=== PATIENT | female | born 1940 | race Caucasian/White ===

== ENCOUNTER 2024-12-15 21:26 | Inpatient (IN) | payer OTHER, SELFPAY ==
[2024-12-15 16:21] VITALS: BP 163/83
[2024-12-15 17:01] LABS: % Basophils 1.1 % (0-2); % Immature Granulocytes 0.3 % (0-0.5); % Lymphocytes 22.2 % (20.5-51.1); % Monocytes 10.3 % (1.7-9.3); % Neutrophils 63.1 % (42.2-75.2); Absolute Basophils 0.1 10^3/uL (0-0.2); Absolute Eosinophils 0.3 10^3/uL (0-0.7); Absolute Monocytes 0.9 10^3/uL (0.1-0.6); Absolute Neutrophils 5.6 10^3/uL (1.4-6.5); Hematocrit 40.1 % (37.0-47.0); Hemoglobin 13.4 g/dL (12.0-16.0); Mean Corp Hgb Conc. 33.4 g/dL (33.0-37.0); Mean Corpuscular Hgb 30.9 pg (27.0-31.0); Mean Corpuscular Volume 92.4 fL (81.0-99.0); Mean Platelet Volume 10.5 fL (7.4-10.4); Nucleated Red Blood Cells % 0 %; Platelet Count 382 10^3/uL (130-400); Red Blood Cell Count 4.34 10^6/uL (4.20-5.40); Red Cell Dist. Width 12.2 % (11.5-14.5); White Blood Cell Count 8.9 10^3/uL (4.8-10.8)
[2024-12-15 17:38] VITALS: BMI 29.2
[2024-12-15 17:40] VITALS: BP 153/72
[2024-12-15] MEDS: TESSALON PERLES 200 MG PO (18:02)
--- NOTE | 2024-12-15 18:03 | ED.GENMED ---
History of Present Illness
General
Chief Complaint: Cold/Flu/URI Symptoms
Source: patient
Exam Limitations: none
Time Seen by Provider: 12/15/24 17:12
Nursing documentation reviewed up to this point in time: agreed with
History of Present Illness
History of Present Illness:
84-year-old female history of PE x 2 both times provoked been off Eliquis for about a year presents with cough shortness of breath dyspnea on exertion somewhat similar to her prior PE no fever or chills described as a dry cough and tickle in her
throat, no nausea or vomiting, no hemoptysis,
Past History
Past History
ED Past Medical History: HTN, Hypothyroidism and Other (PE x 2 after orthopedic injuries)
ED Past Surgical History: Orthopedic
Social History
Tobacco: Non-smoker
Alcohol: None
Drug: None
Personal:
Living: with family
Employment: Retired
Review of Systems
Review of Systems
All Other Systems: Not applicable
Constitutional: Denies fever or fatigue
Respiratory: Reports cough and trouble breathing
Cardiac: Denies chest pain
Endocrine: Reports no symptoms
Hematologic/Lymphatic: Reports no symptoms
Psychiatric: Reports no symptoms
Phy Exam
Physical Exam
Physical Exam:
Physical Exam
General: no apparent distress, not acutely ill
Neck: No jaundice
Heart: s1/s2 regular rate and rhythm, no murmur. equal radial pulses.
Lungs: Crackles bilaterally
Abdomen: not tender
Neuro: alert and oriented. no focal neurological deficits
Skin: no rash
Psychiatric: well kept. interactive and cooperative
Extremities: no edema. no calf tenderness.
Course
Orders/Labs/Results
Orders:
Orders
12/15/24 16:26
Electrocardiogram (*1) Urgent
Reason for Study: Shortness of Breath
CT Chest PE Study Urgent
Comment: hx of PE/DVT
Reason For Exam: shortness of breath, chest tightness, fatigue
12/15/24 16:27
EKG- Treatment ONCE
12/15/24 16:38
Complete Blood Count/With Diff Urgent
12/15/24 17:41
Benzonatate [Tessalon Perles] 200 mg PO NOW STA
12/15/24 17:43
Add On- LAB Urgent
Tests Added?: pBNP
12/15/24 17:52
COVID-19 Antigen Urgent
Source: Nasal Swab
Comprehensive Metabolic Panel Urgent
NT-proBNP Urgent
Comment: ADDON
Troponin I Urgent
Influenza A+B Rapid Molecular Urgent
KEVIN Source: Nasal Swab
Specimen Description:
12/15/24 19:58
PTT Urgent
Comment: Obtain baseline before beginning heparin infusion if not already collected
Heparin 6,400 units IV NOW STA
Pharmacy Request to Place See Dose Instructions PO NOW STA
Discontinue all Active Warfarin orders?: Yes
Nursing to Place Non Medication Order As Directed
Physician Order: PTT 6 hours after initial start of Heparin infusion
12/15/24 20:00
Heparin 34593 Units/250 ml 25,000 units in 250 ml IV PER PROTOCOL
Weight to be used for heparin protocol in kilograms (kg):: 79.5
Protocol:: DVT/PE
PTT Goal Range to be used:: PTT 73 to 111 seconds
Order type:: Initial
INITIAL Infusion Dose (UNITS/KG/hr) & then follow protocol:: 18 units/kg/hr
Infusion Dose in UNITS/hr & then follow protocol (UNITS/hr):: 1,400
INFUSION RATE in mL/hr & then follow protocol (mL/hr):: 14
For DVT/PE algorithm, re-bolus for low PTT?: Yes
PTT less than or equal to 64 seconds:: Re-bolus 80 units/kg (max 10,000units). Increase by 300 units/hr
(+ 3mL/hr)
PTT 64.1 to 72.9 seconds:: Re-bolus 40 units/kg (max 5,000 units). Increase by 200 units/hr
(+ 2mL/hr)
PTT 73 to 111 seconds:: Target Range. No change in rate.
PTT 111.1 to 130.9 seconds:: Decrease rate by 200 units/hr (- 2 mL/hr)
PTT 131 to 199.9 seconds:: HOLD for 1 hr. Then decrease by 200 units/hr (- 2mL/hr)
PTT greater than or equal to 200 seconds:: HOLD for 2 hrs & Notify Provider. Then decrease by 300 units/hr
(- 3mL/hr)
Lab follow-up:: Each change, PTT q6h until 2 consecutive are therapeutic. Then
PTT daily.
Pharmacy Request to Place See Dose Instructions IV DIRECTED
Abnormal Lab Results
12/15/24 12/15/24
16:38 17:52
MPV 10.5 H fL
(7.4-10.4)
Absolute Monos (auto) 0.9 H 10^3/uL
(0.1-0.6)
Monocytes % 10.3 H %
(1.7-9.3)
Potassium 5.3 H mmol/L
(3.5-5.1)
BUN 21 H mg/dl
(7-17)
Glucose 111 H mg/dl
(70-99)
12/15/24 16:38
12/15/24 17:52
Vital Signs
Initial and Last Documented VS:
Initial Vital Signs
Pulse Resp BP Pulse Ox
83 18 163/83 96
12/15/24 16:21 12/15/24 16:21 12/15/24 16:21 12/15/24 16:21
Last Documented Vital Signs
Temp Pulse Resp BP Pulse Ox
98.3 F 61 20 153/72 95
12/15/24 17:39 12/15/24 18:30 12/15/24 18:30 12/15/24 17:40 12/15/24 18:30
MDM/Problems Addressed
Differential Diagnosis Includes:
Heart failure pneumonia bronchitis URI PE
MDM/Problems Addressed:
Shortness of breath cough dyspnea on exertion
*Radiology
Radiology exam reviewed: radiology read reviewed
*Pulse Oximetry
Patient hypoxic: no
*EKG
Interpreted by ED Provider?: Yes
Interpretation: abnormal
Comparison EKG: no comparison EKG present
Heart Rate: 78
Rate: normal
Rhythm: sinus
Ischemia: non-specific ST changes
*Police Aide Interpretation
Rate: normal
Interpretation: normal
Heart Rate: 78
Rhythm: sinus
*Critical Care Note
Total Time (30-74mins, 75-104mins- exclusive of procedures): 31
Data Reviewed
Review of Other/Old Records Reveals: Labs and Progress Notes
Source: patient
Prescriptions/Medications Considered But Not Given:
tpa
Update Note
Update Note:
Update viral swabs negative labs unremarkable troponin proBNP noted CT completed results are pending
ED Attending Note
-
Portions of this chart may have been created with voice recognition software.� Occasional wrong word or��sound alike� substitutions may have occurred due to the inherent limitations of voice recognition software.
Discharge Plan
Departure
Patient Disposition: Admit
Date of Disposition: 12/15/24
Time of Disposition: 19:33
Admit to: Telemetry
Presentation/result/management discussed w/ accepting MD/DO: Hospitalist
Patient with high blood pressure during this ER visit?: No
Condition: Fair
Discharge Problem:
Pulmonary emboli
Instructions: Acute Bronchitis, Adult (DC), Viral Upper Respiratory Infection, Adult (DC), Chest Pain DCA Follow Up
Prescriptions:
New
benzonatate 200 mg capsule
200 mg PO TID PRN (Reason: Cough) Qty: 30 0RF
albuterol sulfate 90 mcg/actuation HFA aerosol inhaler
1 inh inhalation Q4H PRN (Reason: shortness of breath or wheezing) Qty: 8.5 1RF
No Action
cephalexin 500 MG capsule
500 mg PO BID Qty: 14 0RF
Referrals:
Dean Mejia MD [Active] - Next open appointment
Activity Restrictions/Additional Instructions:
Follow-up with your family doctor, return to the ER for worsening symptoms or any other concerns
Interventions
Interventions:
*Risk Screen - Suicide Last Done: 12/15/24 16:21
*General Assessment Last Done: 12/15/24 17:43
*Neglect/Abuse Screening Last Done: 12/15/24 17:43
ED- Fall Risk Assessment Last Done: 12/15/24 17:43
*ED COVID-19 Vaccine History Last Done: 12/15/24 17:43
ED- Pulmonary Assessment Last Done: 12/15/24 17:43
Discharge Date and Time
Print Language: BRITISH
[2024-12-15 18:21] LABS: ALT (SGPT) 31 U/L (0-35); AST (SGOT) 31 U/L (14-36); Albumin 4.1 g/dl (3.5-5.0); Alkaline Phosphatase 102 U/L (38-126); Blood Urea Nitrogen 21 mg/dl (7-17); Calcium 9.6 mg/dl (8.4-10.2); Carbon Dioxide 26 mmol/L (22-30); Chloride 106 mmol/L (98-107); Estimated Creatinine Clearance 50 ml/min; Glucose 111 mg/dl (70-99); Potassium 5.3 mmol/L (3.5-5.1); Sodium 138 mmol/L (135-145); Total Bilirubin 0.5 mg/dl (0.2-1.3); Total Protein 7.1 g/dl (6.3-8.2); eGFR > 60.00
[2024-12-15 18:23] LABS: COVID-19 Antigen Negative (Negative)
[2024-12-15 18:33] LABS: Troponin I < 0.012 ng/ml
[2024-12-15 18:55] LABS: NT-proBNP 214 pg/ml
--- NOTE | 2024-12-15 20:11 | HPS.HSE ---
Family Physician
-
Family Physician: Ursula Figueroa
Chief Complaint
-
Left leg cramp, shortness of breath, dry cough, fatigue
History of Present Illness
84-year-old female with history of PE x 2 provoked 1 after an ankle fracture and 1 after a strained back in prolonged sitting. She has been off Eliquis for approximately 1 year. She states she was never tested for clotting disorders. She
complains of a runny nose for the past 3 weeks with fatigue for 1 month, shortness of breath dry cough over the past 2 weeks and left leg cramps starting about a week and a half ago. She denies any injury, recent travel, fall, flu, COVID. She
denies headache, sore throat, fever, chills, chest pain, palpitations, abdominal pain, nausea, vomiting, diarrhea, urinary symptoms.
She has past medical history of PE provoked x 2 ankle fracture, strain back with prolonged sitting, HTN, HLD, hypothyroidism, tremors to chin and right index finger 2 to 3 years not formally diagnosed, bipolar disorder, eczema, vitamin D
deficiency, IBS.
Medical History
Past Medical History
Past Medical History: Reports Other
Additional Past Medical History:
PE provoked x 2 ankle fracture, strain back with prolonged sitting
HTN
HLD
hypothyroidism
Tremors to chin and right index finger 2 to 3 years not formally diagnosed
Bipolar disorder Dx age 32 has been on lithium since then
Eczema
vitamin D deficiency
IBS.
Past Surgical History: Reports Other
Additional Past Surgical History:
ORIF right ankle with hardware removal
Hysterectomy
Right knee replacement
Social History
Tobacco: Non-smoker
Alcohol: None
Drug: None
Personal: Single
Living: Alone
Employment: Retired
Family History
Family History: Other (Mother CHF age 76, father age 43 postop complications of surgery, 1 brother AAA rupture, 1 sister breast CA, 2 sisters living [address] [facility], dementia, HLD, HTN, other sister living age 90
hypertension A-fib, brother age 84 living HTN)
Allergies / Home Medications
Allergies reflects when Allergies were last updated in [employer] ([facility]
Home Medications with original date entered in [employer] ([facility])
Allergy/Medication List:
Allergies
Allergy/AdvReac Type Severity Reaction Status Date / Time
No Known Allergies Allergy Unverified 12/15/24 16:23
Home Medications
amlodipine 5 mg tablet 5 mg PO DAILY 12/15/24
dicyclomine 10 mg capsule 10 mg PO HS 12/15/24
ergocalciferol (vitamin D2) 1,250 mcg (50,000 unit) capsule (Vitamin D2) 1,250 mcg PO WE 12/15/24
levothyroxine 125 mcg tablet 125 mcg PO DAILY 12/15/24
lithium carbonate 300 mg tablet 300 mg PO HS 12/15/24
magnesium oxide 400 mg PO HS 12/15/24
pravastatin 40 mg tablet 40 mg PO HS 12/15/24
triamcinolone acetonide 0.025 % topical cream 1 applic topical DAILYPRN PRN eczema 12/15/24
Review of Systems
-
History Source: Patient and Family (Daughter at bedside)
A 12 point ROS was completed and negative except as noted: Yes
Constitutional: Reports Fatigue (1 month); Denies Fever or Chills
EENT: Reports Runny Nose (3 weeks); Denies Sore Throat
Respiratory: Reports Cough (Nonproductive 2 weeks) and Trouble Breathing (2 weeks)
Cardiac: Denies Chest Pain, Diaphoresis, Palpitations or Syncope
Abdomen/GI: Denies Abdominal Pain, Nausea, Vomiting, Diarrhea, Constipated, Bloody Stools or Black Stools
: Denies Dysuria, Frequency, Flank Pain, Incontinence, Difficulty Voiding or Urgency
Musculoskeletal: Reports Muscle Pain (Left calf pain 1.5 weeks); Denies Joint Pain, Joint Swelling or Edema
Skin: Denies Itching or Rash
Neurological: Denies Dizzy, Headache or Weakness
Endocrine: Reports No Symptoms
Hematologic/Lymphatic: Reports No Symptoms
Psych: Reports Calm
Physical Exam
Vital Signs
Vital Signs
Temp Pulse Resp BP Pulse Ox
98.3 F 61 20 153/72 95
12/15/24 17:39 12/15/24 18:30 12/15/24 18:30 12/15/24 17:40 12/15/24 18:30
Physical Exam
General: Comfortable and Conversant; No Pain, Fever or Chills
HEENT: NormoCephalic, Anicteric, Moist mucous membranes, PERRLA, Endeavor Conjunctivae, No Ptosis, Hearing Impaired (Mild [place]) and Other (Chronic tremor to lower chin)
Respiratory: Clear; No Wheezes, Rales or Rhonchi
Cardiac: S1/S2 and Regular Rhythm; No Murmur, Rub, Gallop, Peripheral Edema, Calf Tenderness or Arianna's Sign
Breast: Deferred by me
GI: Soft, Non Tender, Non Distended, Normal Bowel Sounds and No Hepatosplenomegaly
Rectal: Deferred by Provider
Genito-urinary: Deferred by me
Musculoskeletal: No Clubbing, No Cyanosis and No Edema
Skin: Warm and Dry; No Rash
Neuro: AO x 3, No Motor Deficits, Nonfocal/grossly intact, Cranial Nerves Intact, Tremors (Lower chin chronic 2 to 3 years and right index finger) and Other (Mild [place]); No Slurred Speech, Facial Droop or Sedated
Psych: Calm
Laboratory Results
-
12/15/24 16:38
12/15/24 17:52
Laboratory Results
Total Bilirubin 0.5 mg/dl (0.2-1.3) 12/15/24 17:52
AST 31 U/L (14-36) 12/15/24 17:52
ALT 31 U/L (0-35) 12/15/24 17:52
Alkaline Phosphatase 102 U/L (38-126) 12/15/24 17:52
Troponin I < 0.012 ng/ml 12/15/24 17:52
Data Reviewed
-
CT Scan: Report Reviewed by me
Lab Data: Labs Reviewed by me
Impression/Plan
-
Impression/plan:
Admit to telemetry
#Acute PE bilateral left anterior left upper lobe pulmonary artery, left lower lobe, RML/RLL pulm arteries
#Hx provoked PE x 2 was on Eliquis until 1 year ago
-Will give 10 mg Eliquis now
-Start Eliquis 10 mg twice daily x 7 days to end on 12/22/2024 then start Eliquis 5 mg twice daily on 12/23/[address]24
[address] PE:
1. study positive for pulmonary embolism moderate bilateral upper and lower lobe thrombus burden.
2. Additional thrombus on the left identified in the ANTERIOR LEFT UPPER LOBE, PERIPHERAL segment PULM ARTERY , PROX LINGULA segment,
pulmonary artery, PROXIMAL POSTERIOR MEDIAL LEFT LOWER LOBE subsegmental PULM ARTERY .
3. Additional THROMBUS on the RIGHT identified in the RIGHT MIDDLE LOBE and subsegmental RIGHT LOWER LOBE pulmonary arteries
4. No evidence of right ventricular strain
#HTN-benign
-Continue amlodipine 5 mg daily
#HLD
-Continue pravastatin 40 mg p.o. at bedtime
#Hypothyroidism
-Continue levothyroxine 125 mcg p.o. daily
#Tremors to chin and right index finger 2 to 3 years not formally diagnosed
#Bipolar disorder Dx age 32
-Continue lithium 300 mg p.o. at bedtime
#Eczema-no current exacerbation
-uses as needed triamcinolone
#Vitamin D deficiency 1250 mcg p.o. Wednesdays
#IBS
-Continue dicyclomine 10 mg p.o. at bedtime
#Hypomagnesemia
-Continue Mag-Ox 400 mg p.o. at bedtime
DNR
--- NOTE | 2024-12-15 20:56 | W.PN.UPDATE ---
Update Note
Progress Note Update
Patient seen in conjunction with COLLECTION SYSTEMS ADMINISTRATOR. I agree with the findings on history and physical. I concur with the assessment and plan unless stated otherwise.
Briefly, this is a 84-year-old female who has a past medical history of bipolar, hypothyroid, hypertension and hyperlipidemia as well as a prior history of venous thrombosis and twice presenting to the emergency department with progressive dyspnea
on exertion, chest pressure and fatigue. Patient reported that she last had a PE about 4 years ago. She was on anticoagulation up until 1 year ago when it was discontinued. She been feeling well and usual significant up until last week when she
reported some mild lateral calf tenderness on the left. She also started having fatigue and some dyspnea on exertion. She had more severe dyspnea on exertion over the last few days which was reminiscent of 4 episodes of PE in the past so she said
to come to the emergency department. She denied significant pleuritic chest pain. She denies lightheadedness or dizziness. Patient apparently had URI symptoms about a week ago.
In the emergency department she was afebrile, blood pressure was 150/70 with a pulse of 61 satting 95% on room air. ECG shows a normal sinus rhythm without any acute ST or T wave changes. Troponin was negative. BNP was negative. A CT angio of
the chest shows bilateral PE with moderate clot burden and no RV strain. CBC was normal. Electrolytes BUN/creatinine were all within normal limits except for a slight elevation in potassium to 5.3.
Admit to telemetry
Patient tolerated eliquis in the past, start eliquis 10mg q 12 for 7 days then 5mg bid afterwards
Check for DVT.
No indication for Echo.
Pain control
Continue usual home medications
Follow serum K in am
Code status - DNR
[2024-12-15 21:31] LABS: Magnesium 2.3 mg/dl (1.6-2.3)
[2024-12-15] MEDS: ELIQUIS 10 MG PO (21:41)
[2024-12-15] MEDS: ESKALITH REGULAR RELEASE 300 MG PO (22:11)
[2024-12-15] MEDS: BENTYL 10 MG PO (22:11)
[2024-12-15] MEDS: PRAVACHOL 40 MG PO (22:11)
[2024-12-15] MEDS: MAGNESIUM OXIDE 500 MG PO (22:11)
[2024-12-15 22:14] VITALS: BP 149/70; BMI 28.7
[2024-12-16 03:00] VITALS: BP 135/58
[2024-12-16] MEDS: SYNTHROID 125 MCG PO (05:23)
[2024-12-16 05:37] VITALS: BMI 28.7
[2024-12-16 07:04] LABS: % Basophils 0.7 % (0-2); % Eosinophils 4.2 % (0-6); % Immature Granulocytes 0.5 % (0-0.5); % Lymphocytes 24.6 % (20.5-51.1); % Monocytes 13.6 % (1.7-9.3); % Neutrophils 56.4 % (42.2-75.2); Absolute Basophils 0.1 10^3/uL (0-0.2); Absolute Eosinophils 0.3 10^3/uL (0-0.7); Absolute Lymphocytes 1.8 10^3/uL (1.2-3.4); Absolute Neutrophils 4.1 10^3/uL (1.4-6.5); Hematocrit 37.1 % (37.0-47.0); Hemoglobin 12.4 g/dL (12.0-16.0); Mean Corp Hgb Conc. 33.4 g/dL (33.0-37.0); Mean Corpuscular Hgb 30.3 pg (27.0-31.0); Mean Corpuscular Volume 90.7 fL (81.0-99.0); Mean Platelet Volume 10.1 fL (7.4-10.4); Nucleated Red Blood Cells % 0 %; Platelet Count 357 10^3/uL (130-400); Red Blood Cell Count 4.09 10^6/uL (4.20-5.40); Red Cell Dist. Width 12.1 % (11.5-14.5); White Blood Cell Count 7.4 10^3/uL (4.8-10.8)
[2024-12-16 07:28] LABS: ALT (SGPT) 28 U/L (0-35); AST (SGOT) 30 U/L (14-36); Albumin 3.3 g/dl (3.5-5.0); Alkaline Phosphatase 88 U/L (38-126); Blood Urea Nitrogen 18 mg/dl (7-17); Calcium 9.1 mg/dl (8.4-10.2); Carbon Dioxide 25 mmol/L (22-30); Chloride 107 mmol/L (98-107); Estimated Creatinine Clearance 56 ml/min; Glucose 106 mg/dl (70-99); Potassium 4.8 mmol/L (3.5-5.1); Sodium 136 mmol/L (135-145); Total Bilirubin 0.5 mg/dl (0.2-1.3); Total Protein 5.9 g/dl (6.3-8.2); eGFR > 60.00
[2024-12-16 07:30] VITALS: BP 141/70
[2024-12-16] MEDS: NORVASC 5 MG PO (08:28)
[2024-12-16] MEDS: ELIQUIS 10 MG PO (08:28)
[2024-12-16] MEDS: TYLENOL 650 MG PO (08:31)
[2024-12-16] MEDS: ROBITUSSIN DM 5 ML PO ×2 (08:49→14:29)
--- NOTE | 2024-12-16 09:19 | W.PN.HOSP.TC ---
Today's Communication/Plan
-
Discharge home today
Assessment / Plan
Assessment / Plan
84-year-old female with history of PE x 2 provoked 1 after an ankle fracture and 1 after a strained back in prolonged sitting. She has been off Eliquis for approximately 1 year. She states she was never tested for clotting disorders. She
complains of a runny nose for the past 3 weeks with fatigue for 1 month, shortness of breath dry cough over the past 2 weeks and left leg cramps starting about a week and a half ago. She denies any injury, recent travel, fall, flu, COVID. She
denies headache, sore throat, fever, chills, chest pain, palpitations, abdominal pain, nausea, vomiting, diarrhea, urinary symptoms.
She has past medical history of PE provoked x 2 ankle fracture, strain back with prolonged sitting, HTN, HLD, hypothyroidism, tremors to chin and right index finger 2 to 3 years not formally diagnosed, bipolar disorder, eczema, vitamin D
deficiency, IBS.
#Acute bilateral PE, unprovoked
#History of provoked PE
Currently on Eliquis 10 mg twice a day for 7 days, then 5 mg daily
Bilateral lower extremity Dopplers negative for DVT
Recommend outpatient echocardiogram with PCP
Seen by PT, she is satting well with ambulation
Denies shortness of breath, dyspnea with activity, or hemoptysis
Medically stable for discharge home today
CT PE:
1. study positive for pulmonary embolism moderate bilateral upper and lower lobe thrombus burden.
2. Additional thrombus on the left identified in the ANTERIOR LEFT UPPER LOBE, PERIPHERAL segment PULM ARTERY , PROX LINGULA segment,
pulmonary artery, PROXIMAL POSTERIOR MEDIAL LEFT LOWER LOBE subsegmental PULM ARTERY .
3. Additional THROMBUS on the RIGHT identified in the RIGHT MIDDLE LOBE and subsegmental RIGHT LOWER LOBE pulmonary arteries
4. No evidence of right ventricular strain
#HTN-benign
-Continue amlodipine 5 mg daily
#HLD
-Continue pravastatin 40 mg p.o. at bedtime
#Hypothyroidism
-Continue levothyroxine 125 mcg p.o. daily
#Tremors to chin and right index finger 2 to 3 years not formally diagnosed
#Bipolar disorder Dx age 32
-Continue lithium 300 mg p.o. at bedtime
#Eczema-no current exacerbation
-uses as needed triamcinolone
#Vitamin D deficiency 1250 mcg p.o. Wednesdays
#IBS
-Continue dicyclomine 10 mg p.o. at bedtime
#Hypomagnesemia
-Continue Mag-Ox 400 mg p.o. at bedtime
Physical Exam
General: No acute distress
HEENT: Normocephalic, Atraumatic, EOMI, MMM
Respiratory: Clear to Auscultation bilaterally
Cardiac: Normal S1/S2, Regular Rate and Rhythm
GI: Soft, Nontender, Nondistended, Normal Bowel Sounds
Extremities: No Clubbing, Cyanosis, or Edema
Neuro: Nonfocal/Grossly Intact
Psych: Calm, Cooperative
Anticipated Discharge: Today
Subjective/Interval History
-
Date of Service: December 16, 2024
Patient denies shortness of breath, denies dyspnea with activity. She has a postnasal drip, and is coughing. Denies hemoptysis. No fever, no vomiting.
Objective Data
-
Labs:
Laboratory Results
12/16/24
06:41
WBC 7.4
Hgb 12.4
Hct 37.1
Plt Count 357
Sodium 136
Potassium 4.8
Chloride 107
Carbon Dioxide 25
BUN 18 H
Creatinine 0.8
Glucose 106 H
Calcium 9.1
Total Bilirubin 0.5
AST 30
ALT 28
Alkaline Phosphatase 88
Vital Signs:
Vital Signs
Temp Pulse Resp BP Pulse Ox
98.0 F 73 16 141/70 97
02/14/25 07:30 12/16/24 07:30 12/16/24 07:30 12/16/24 07:30 12/16/24 07:30
[2024-12-16 10:18] VITALS: BP 125/72; PULSE 73; O2SAT 97
[2024-12-16 11:12] VITALS: BP 136/71
--- NOTE | 2024-12-16 13:16 | W.DCSUMMARY ---
Discharge Summary
Discharge Data
Date of Admission: 12/15/24
Date of Discharge: 12/16/24
-
Pending Results: No
Hospital Course
Discharge diagnosis:
Acute bilateral pulmonary emboli, unprovoked
History of provoked pulmonary embolism x 2
Essential hypertension
Hyperlipidemia
Hypothyroidism
Bipolar disorder
Eczema
Vitamin D deficiency
Irritable bowel syndrome
Hypomagnesemia
Chest CT:
Positive for pulmonary embolism. Moderate bilateral upper and lower lobe thrombus burden.
The branching order level of the most proximal level of embolism is right upper lobe proximal apical and posterior segmental pulmonary arteries, and left upper lobe proximal posterior segmental pulmonary artery.
No evidence of right ventricular strain.
LE US:
No evidence of right or left lower extremity deep venous thrombosis.
Hospital course:
84-year-old female with a past medical history of provoked PE x 2, hypertension, hyperlipidemia, hypothyroidism, and bipolar disorder presented with a dry cough, and was found to have acute bilateral PE. Patient has a history of pulmonary embolism
x 2, provoked. She was treated with Eliquis, and has been off of it for 1 year. She came to the ER with a dry cough and shortness of breath. CT of the chest demonstrates bilateral PE. Lower extremity Dopplers were negative. There is no
identifiable risk factor.
Patient was treated with Eliquis. By the following day, her shortness of breath resolved. She continues to have a dry cough, which she attributes to a postnasal drip. She was not hypoxic. She was seen in conjunction with PT, and did well. She
was not short of breath with activity. She was not hypoxic with activity.
She is medically stable for discharge on Eliquis 10 mg twice a day for 7 days, 5 mg twice a day. She can follow-up with her primary care doctor in 1 week, and obtain an outpatient echocardiogram. She has also been instructed to follow-up with
hematology in the office for hypercoagulable workup.
Disposition: Home self-care
Discharge planning: Required 41 minutes
Discharge Plan
-
Patient Disposition: Home (Routine Discharge)
Discharge Diagnosis/Procedures: Bilateral pulmonary embolism, dry cough, postnasal drip
Condition: Good
Diet: Low Fat and Low Cholesterol
Activity: As tolerated
Driving Restrictions: As prior to admission
Activity Restrictions/Additional Instructions:
Follow-up with hematology in the office in 3-4 weeks for hypercoagulable workup, follow-up with your primary care doctor in 1 week.
Take Eliquis 10 mg twice a day for 6 more days, then 5 mg twice a day.
Referrals:
Katerine Conley MD [Active] - in three to four weeks
Ursula Figueroa MD [Family Provider] - in one week
Prescriptions:
New
Eliquis 5 mg tablet
See Rx Instructions .ROUTE .COMPLEX Qty: 90 0RF
Rx Instructions:
2 tablets twice a day for 6 days, then 1 tablet twice a day
fluticasone propionate 50 mcg/actuation spray,suspension
1 spray intranasal BID Qty: 16 0RF
Continued
pravastatin 40 mg Tablet
40 mg PO HS
amlodipine 5 mg Tablet
5 mg PO DAILY
triamcinolone acetonide 0.025 % Cream
1 applic TOPICAL DAILYPRN PRN (Reason: eczema)
levothyroxine 125 mcg Tablet
125 mcg PO DAILY
ergocalciferol (vitamin D2) [Vitamin D2] 1,250 mcg (50,000 unit) Capsule
1,250 mcg PO WE
lithium carbonate 300 mg Tablet
300 mg PO HS
dicyclomine 10 mg Capsule
10 mg PO HS
magnesium oxide 400 mg magnesium Tablet
400 mg PO HS
Discharge Orders:
Discharge Patient (As Directed); Ordered 12/16/24
Ordered By: Octavio Knapp
Discharge Date and Time
Discharge Date/Time: 12/16/24 16:33
Print Language: SINHALA
--- NOTE | 2024-12-16 13:40 | CM ---
CM reviewed chart, patient seen bedside, initial assessment completed. Patient resides independently in a split level home, one step to enter, 5 + 6 steps to each level, with railing. Patient reports she has a cane and walker in the home if needed.
Patient reports VN in past after knee replacement, [facility]. Patient denies SNF. Patient confirms PCP Ursula Figueroa, [facility], confirms prescription coverage. Patient denies any insecurities at home. Patient reports her daughter
will provide transportation home. Patient inquiring about Eliquis coupon, placed in patients chart. IMM verbally reviewed, provided with copy, placed in chart. CM will continue to follow for all discharge planning needs.
Plan; home no needs.
[2024-12-16 15:46] VITALS: BP 140/66
== END 2024-12-16 16:33 | disposition home or self-care (01) | DRG 176 ==
LOC: 4 WEST ACU 21:26
PROVIDERS: Clinical Nurse Specialist Family Health; Physician Assistant; ADMITTING PHYSICIAN Internal Medicine; ATTENDING PHYSICIAN Family Medicine; EMERGENCY PHYSICIAN Emergency Medicine; FAMILY PHYSICIAN Family Medicine
DX: I26.99 Other pulmonary embolism without acute cor pulmonale (principal); Z11.52 Encounter for screening for COVID-19; Z66 Do not resuscitate; Z79.01 Long term (current) use of anticoagulants; I10 Essential (primary) hypertension; Z82.49 Family history of ischemic heart disease and other diseases of the circulatory system; E78.5 Hyperlipidemia, unspecified; E03.9 Hypothyroidism, unspecified; F31.9 Bipolar disorder, unspecified; L30.9 Dermatitis, unspecified; E55.9 Vitamin D deficiency, unspecified; K58.9 Irritable bowel syndrome, unspecified; E83.42 Hypomagnesemia; Z79.899 Other long term (current) drug therapy
CPT/HCPCS: 71275; 80053; 83735; 83880; 84484; 85025; 87502; 87811; 93005; 93970; 97162; 97530; 99291; Q9967